=== PATIENT | female | born 1965 | race Caucasian/White ===

== ENCOUNTER 2022-05-19 08:39 | Outpatient (REF) | payer MEDICARE, MEDICAID, SELFPAY ==
--- NOTE | 2022-05-19 09:49 | MHC.AU.HA3 ---
Hearing Instrument Follow-Up- Binaural Date of Visit: 05/19/22 Left Ear: Make, Model, Color, Serial Number: Oticon Xceed 2 BTE UP SN: [id number] Color: Chroma Beige Colorist Photography Repair Warranty: 02/29/2024 Colorist Photography Loss and Damage Warranty: 02/29/2024 Battery Size: 675 Earmold/Dome/CShell/SlimTip: Microsonic M2000 full shell Dispensed By: Elvin [facility] Date of Fitting: January 2021 Follow-Up Summary: Brianna reported that her hearing aid has been intermittent and the tubing is pulling out of the ear mold. Tubing was extremely hard and starting to fill with wax. Cleaned hearing aid and ear mold, vacuumed microphones, and replaced tubing. A listening check demonstrated that the hearing aid is in good working order. Brianna reported that otherwise she likes the sound quality and has no other concerns with the hearing aid. Recommendations: Hearing instrument maintenance in 6 months, or sooner if needed. Please contact our clinic with any questions or concerns. Diagnosis Code(s): Primary Diagnosis: H90.3 Bilateral Sensorineural Hearing Loss Signature: Provider: Ashlee Tamayo, [facility]
== END 2022-05-19 08:40 | disposition home or self-care (01) ==
LOC: HO.SH 08:39
PROVIDERS: Visit Provider Physician Assistant
DX: Z01.118 Encounter for examination of ears and hearing with other abnormal findings (principal); H90.3 Sensorineural hearing loss, bilateral
CPT/HCPCS: 92553; 92592

== ENCOUNTER 2022-11-19 11:23 | Outpatient (REF) | payer MEDICARE, MEDICAID, SELFPAY ==
--- NOTE | 2022-11-19 11:55 | MHC.AU.HA3 ---
Hearing Instrument Follow-Up- Binaural Date of Visit: 11/19/22 Left Ear: Make, Model, Color, Serial Number: Oticon Xceed 2 BTE UP SN: [id number] Color: Chroma Beige Rubber Chemist Repair Warranty: 02/29/2024 Rubber Chemist Loss and Damage Warranty: 02/29/2024 Battery Size: 675 Earmold/Dome/CShell/SlimTip: Microsonic M2000 full shell Dispensed By: Elvin [facility] Date of Fitting: January 2021 Follow-Up Summary: Brianna returned for routine hearing aid maintenance. Tubing hardened with non-occluding wax starting to build up. Cleaned her hearing aid and earmold. Replaced tubing. Vacuumed microphones. A listening check demonstrated that the hearing aid is in good working order. Otoscopy clear, bilaterally. Recommendations: Hearing instrument maintenance in 6 months, or sooner if needed. Diagnosis Code(s): Primary Diagnosis: H90.3 Bilateral Sensorineural Hearing Loss Signature: Provider: Ashlee Tamayo, [facility]
== END 2022-11-19 11:24 | disposition home or self-care (01) ==
LOC: HO.HAP 11:23
PROVIDERS: Visit Provider Internal Medicine
DX: Z46.1 Encounter for fitting and adjustment of hearing aid (principal); H90.3 Sensorineural hearing loss, bilateral
CPT/HCPCS: 92592; 99499

== ENCOUNTER 2024-02-19 11:49 | Outpatient (REF) | payer MEDICARE, MEDICAID, SELFPAY ==
--- NOTE | 2024-02-19 15:20 | MHC.AU.HA3 ---
Hearing Instrument Follow-Up Date of Visit: 02/19/24 Left Ear: Make, Model, Color, Serial Number: Oticon Xceed 2 BTE UP SN: [id number] Color: Chroma Beige Automation Tender Repair Warranty: 02/29/2024 Automation Tender Loss and Damage Warranty: 02/29/[address] [facility] Service Plan: Battery Size: 675 Radiologist Physician/Slim Tube: Earmold/Dome/CShell/SlimTip: Microsonic M2000 full shell Type of Wax Guard: Dispensed By: Elvin [facility] Date of Fitting: January 2021 Follow-Up Summary: Aid dropped off with note that it has been weak. Found tube very hard and debris in tube. Cleaned aid, ran through dehumidifier, cleaned earmold, replaced tubing. Listening check positive. Recommendations: Recommendations: Hearing instrument maintenance in 6 months, or sooner if needed. Diagnosis Code(s): Primary Diagnosis: H90.3 Bilateral Sensorineural Hearing Loss Signature: Provider: Ashlee Ness, [facility]
== END 2024-02-19 11:50 | disposition home or self-care (01) ==
LOC: HO.HAP 11:49
DX: Z13.89 Encounter for screening for other disorder (principal)

== ENCOUNTER 2024-03-02 12:51 | Outpatient (REF) | payer MEDICARE, MEDICAID, SELFPAY | END 2024-03-02 12:52 | disposition home or self-care (01) | LOC: HO.HAP 12:51 | PROVIDERS: Visit Provider Physician Assistant | DX: Z46.1 Encounter for fitting and adjustment of hearing aid (principal); H90.3 Sensorineural hearing loss, bilateral | CPT/HCPCS: 92592; 99499 ==

== ENCOUNTER 2024-03-29 14:20 | Outpatient (REF) | payer MEDICARE, MEDICAID, SELFPAY ==
--- NOTE | 2024-03-29 14:47 | MHC.AU.HA3 ---
Hearing Instrument Follow-Up- Binaural Date of Visit: 03/29/24 Left Ear: Make, Model, Color, Serial Number: Oticon Xceed 2 BTE UP SN: [id number] Color: Chroma Beige Master Sonar Technician Repair Warranty: 03/29/2025 Master Sonar Technician Loss and Damage Warranty: 02/29/2024 Battery Size: 675 Earmold/Dome/CShell/SlimTip: Microsonic M2000 full shell Dispensed By: Elvin [facility] Date of Fitting: January 2021 Follow-Up Summary: Returned loaner. Picked up repaired BOURNE, transferred EM. Initially, too soft. Increased overall gain slightly with noted improvement. Recommendations: Hearing instrument follow-up or maintenance as needed. Please contact our clinic with any questions or concerns. Diagnosis Code(s): Primary Diagnosis: H90.3 Bilateral Sensorineural Hearing Loss Signature: Provider: Ashlee Tamayo, CCC-A
== END 2024-03-29 14:21 | disposition home or self-care (01) ==
LOC: HO.HAP 14:20
PROVIDERS: Visit Provider Physician Assistant
DX: Z46.1 Encounter for fitting and adjustment of hearing aid (principal); H90.3 Sensorineural hearing loss, bilateral
CPT/HCPCS: V5014

== ENCOUNTER 2024-11-02 09:49 | Outpatient (REF) | payer MEDICARE, MEDICAID, SELFPAY ==
--- OUTSIDE RECORDS SUMMARY | 2024-11-02 10:11 | XMS_ITS | Continuity of Care Document ---
Author Organization [facility] [address] [place] [address] Phone [phone] Care Team Providers Care Retort Cooler Name Role Phone Tona Banks Care Team Information Single Pass Soil Stabilizer Operator [phone] Luke Teixeira Care Team Information Receive r [phone] Problems Active Problems Provider Date Allergic rhinitis Jeremi Fleming M.D. Onset: 05/29/2022 Asthma Jeremi Fleming M.D. Onset: 0 05/29/2022 Carotid artery stenosis Jeremi Fleming M.D. Onset: 05/29/2022 Neck sprain Jeremi Fleming M.D. Onset: 0 05/29/2022 Chronic kidney disease stage 3 Jeremi Fleming M.D. Onset: 05/29/2022 Uses sign language Jeremi Fleming M.D. Onset : 05/29/2022 Deaf mutism Jeremi Fleming M.D. Onset: 0 05/29/2022 Type 2 diabetes mellitus Jeremi Fleming M.D. Onset: 05/29/2022 Hyperlipidemia Jeremi Fleming M.D. Onset: 0 05/29/2022 Hypothyroidism Jeremi Fleming M.D. Onset: 0 05/29/2022 Essential hypertension Jeremi Fleming M.D. O nset: 05/29/2022 Heart murmur Jeremi Fleming M.D. Onset: 0 05/29/2022 Hypertriglyceridemia Jeremi Fleming M.D. Ons et: 05/29/2022 Polycystic ovary syndrome Pasquale Ahuja Onset: 05/29/2022 Social History Type Date Description Comments Sex Female Sex Unknown ETOH Use Denies alcohol use Tobacco Use Start: Unknown End: Unknown Patient is a former smoker Allergies and adverse reactions Active Allergies Criticality Reaction Severity Comments Date Eggs Unable to assess criticality 05/29/2022 Medications Active Medications SIG Qnty Indications Order ing Provider Date Rpntfqydwyu379tl Tablets 1 tablet by mouth every day 90tabs Jeremi Fleming M.D. 09/06/2024 Mounjaro7.5mg/0.5ML Solution Auto-Inject 1 injection every week as directed 6ml Jeremi Fleming M.D. 03/17/2024 BD Uf Short Pen Needle 9LVX18P Use Once A Day 100units E11.9 Jeremi Fleming M.D. 10/19/2023 Freestyle Shahana 3/Sensor/Glucose Monitoring Pkothd7Vhqtgy Misc as directed 6units Jeremi Fleming M.D. 01/12/2023 Abouttime Pen [place] 30GX 5/16 30G X 8 mm Misc 1 injection per day 100units Jeremi Fleming M.D. 10/08/2022 Lantus Iujtirgn640Gpbu/ML Solution Pen-Inject Inject 22 Units Under The Skin Once Daily DX: E11.9 15units E11.9 Jeremi Fleming M.D. 10/08/2022 Accu-Chek GuideStrips test 2 times a day dx: e11.9 100units Jeremi Fleming M.D. 05/29/2022 Nrqxrhzpk2wp Tablets Take 2 Tablets By Mouth Twice A Day 360tabs Jeremi Fleming M.D. 05/29/2022 Ssedbntpg58eb Tablets Take 1 Tablet By Mouth Every Day 90tabs Jeremi Fleming M.D. 05/29/[address] 1 by mouth every day Jeremi Fleming M.D. Doxycycline Gogqkgu895dj Tablets 1 by mouth every day 28tabs Jeremi Fleming M.D. Magnesium Oxide (Elemental)400mg Tablets 1 by mouth once a day Jeremi Fleming M.D. Doxepin EYP79mp Capsules take 1 capsule by mouth everyday at bedtime Jeremi Fleming M.D. Levothyroxine Wztqmu16urw Tablets 1 by mouth every day Jeremi Fleming M.D. Cyclobenzaprine FTS41iz Tablets take 1 tablet by mouth at bedtime as needed 30tabs Jeremi Fleming M.D. Pravastatin Dgtbti18cg Tablets 1 by mouth every day 90tabs Jeremi Fleming M.D. Vpybep69vb/0.5ML Soln Prefill Syringe use as directed monthly Jeremi Fleming M.D. Montelukast Lygyjj78iv Tablets 1 by mouth every day Jeremi Fleming M.D. Asmanex MVG869dnm/Act Aerosol inhale 2 puffs by mouth twice a day as directed 13gm Jeremi Fleming M.D. Flovent OYE986bpw/Act Aerosol 2 puff twice a day Jeremi Fleming M.D. Metformin BDQ960vq Tablets Take 1 Tablet By Mouth Twice A Day 180tabs Jeremi Fleming M.D. Aspirin 8181mg Tablets DR 1 by mouth every day 90tabs Jeremi Fleming M.D. Hmdpwwrlkw14kt Tablets 1 tab by mouth every day as directed 90tabs Jeremi Fleming M.D. Vital Signs Date Vital Result Comment 08/15/2024 10:56am BP Systolic 136 mmHg BP Diastolic 80 mmHg Heart Rate 72 /min Height 64 inches 5'4 Weight 145.50 lb BMI (Body Mass Index) 25.0 kg/m2 Results Test Acquired Date Facility Test Result H/L Range Note Lipid Panel 09/02/2024 [facility] Cholesterol, Total 181 mg/dL 100-199 Triglycerides 489 mg/dL High 0-149 HDL Cholesterol 45 mg/dL >39 VLDL Cholesterol Josh 74 mg/dL High 5-40 LDL Chol Calc (Rust) 62 mg/dL 0-99 LDL Calc Comment: TNP Comp. Metabolic Panel (14) 09/02/2024 [facility] Glucose 173 mg/dL High 70-99 BUN 40 mg/dL High 8-27 Creatinine 1.00 mg/dL 0.57-1.00 eGFR 64 mL/min/1.7 3 >59 BUN/Creatinine Ratio 40 High 12-28 Sodium 142 mmol/L 134-144 Potassium 4.4 mmol/L 3.5-5.2 Chloride 102 mmol/L 96-106 Carbon Dioxide, Total 21 mmol/L 20-29 Calcium 10.4 mg/dL High 8.7-10.3 1 Protein, Total 6.6 g/dL 6.0-8.5 Albumin 4.4 g/dL 3.8-4.9 Globulin, Total 2.2 g/dL 1.5-4.5 Bilirubin, Total 0.4 mg/dL 0.0-1.2 Alkaline Phosphatase 79 IU/L 44-121 Ast (Sgot) 43 IU/L High 0-40 Alt (SGPT) 59 IU/L High 0-32 Albumin/Creati nine Ratio, Random Urine 09/02/2024 [facility] Creatinine, Urine 24.3 mg/dL Not Estab. Albumin, Urine 37.9 ug/mL Not Es tab. Alb/Creat Ratio 156 mg/gcreat High 0-29 2 Vitamin D, 25-Hydroxy 09/02/2024 [facility] Vitamin D, 25-Hydroxy 43.7 ng/mL 30.0-100.0 3 CBC With Differential/P latelet 09/02/2024 [facility] WBC 8.5 x10E3/uL 3.4-10.8 RBC 4.88 x10E6/uL 3.77-5.28 Hemoglobin 15.1 g/dL 11.1-15.9 Hematocrit 44.8 % 34.0-46.6 MCV 92 fL 79-97 MCH 30.9 pg 26.6-33.0 MCHC 33.7 g/dL 31.5-35.7 RDW 14.0 % 11.7-15.4 Platelets 266 x10E3/uL 150-450 Neutrophils 70 % Not Estab. Lymphs 19 % Not Estab. Monocytes 7 % Not Estab. Eos 2 % Not Estab. Basos 1 % Not Estab. Immature Cells TNP Neutrophils (Absolute) 6.1 x10E3/uL 1.4-7.0 Lymphs (Absolute) 1.6 x10E3/uL 0.7-3.1 Monocytes(Absol [place]) 0.6 x10E3/uL 0.1-0.9 Eos (Absolute) 0.2 x10E3/uL 0.0-0.4 Baso (Absolute) 0.1 x10E3/uL 0.0-0.2 Immature Granulocytes 1 % Not Estab. Immature Grans (Abs) 0.1 x10E3/uL 0.0-0.1 NRBC TNP Hematology Comments: TNP Urinalysis, Complete 09/02/2024 [facility] Specific [place] 1.022 1.005-1.03 0 pH 5.5 5.0-7.5 Urine-Color Yellow Yellow Appearance Clear Clear WBC Esterase 2+ Abnormal Negative Protein Trace Negative/T race Glucose 3+ Abnormal Negative Ketones Negative Negative Occult Blood Negative Negative Bilirubin Negative Negative Urobilinogen,Se mi-Qn 0.2 mg/dL 0.2-1.0 Nitrite, Urine Negative Negative Microscopic Examination See below: 4 Microscopic Examination TNP WBC >30 /hpf Abnormal 0 - 5 RBC None seen /hpf 0 - 2 Epithelial Cells (non renal) 0-10 /hpf 0 - 10 Epithelial Cells (renal) TNP Casts None seen /lpf None seen Cast Type TNP Crystals TNP Crystal Type TNP Mucus Threads TNP Bacteria Many Abnormal None seen/Few Yeast TNP Trichomonas TNP Comment TNP TSH+Free T4 09/02/2024 [facility] TSH 2.300 uIU/mL 0.450-4.50 0 T4,Free(Direct) 1.08 ng/dL 0.82- 1.77 Glucose Fingerstick 08/15/2024 Inhouse Glucose Fingerstick 212 Hemoglobin A1c 08/15/2024 Inhouse Hemoglobin A1c 7.5% Glucose Fingerstick 03/17/2024 Inhouse Glucose Fingerstick 198 Hemoglobin A1c 03/17/2024 Inhouse Hemoglobin A1c 9.2% Urinalysis, Complete 01/01/2024 [facility] Specific [place] 1.023 1.005-1.03 0 pH 6.0 5.0-7.5 Urine-Color Yellow Yellow Appearance Clear Clear WBC Esterase 1+ Abnormal Negative Protein Negative Negative/T race Glucose 3+ Abnormal Negative Ketones Negative Negative Occult Blood Negative Negative Bilirubin Negative Negative Urobilinogen,Se mi-Qn 0.2 mg/dL 0.2-1.0 Nitrite, Urine Negative Negative Microscopic Examination See below: 5 Microscopic Examination TNP WBC >30 /hpf Abnormal 0 - 5 RBC None seen /hpf 0 - 2 Epithelial Cells (non renal) 0-10 /hpf 0 - 10 Epithelial Cells (renal) TNP Casts None seen /lpf None seen Cast Type TNP Crystals TNP Crystal Type TNP Mucus Threads TNP Bacteria Many Abnormal None seen/Few Yeast TNP Trichomonas TNP Comment TNP Phosphorus 01/01/2024 [facility] Phosphorus 4.6 mg/dL High 3.0-4.3 Magnesium 01/01/2024 [facility] Magnesium 1.7 mg/dL 1.6-2.3 PTH, Intact 01/01/2024 [facility] PTH, Intact 21 pg/mL 15-65 Albumin/Creati nine Ratio, Random Urine 01/01/2024 [facility] Creatinine, Urine 28.6 mg/dL Not Estab. Albumin, Urine 29.7 ug/mL Not Es tab. Alb/Creat Ratio 104 mg/gcreat High 0-29 6 Vitamin D, 25-Hydroxy 01/01/2024 [facility] Vitamin D, 25-Hydroxy 36.9 ng/mL 30.0-100.0 7 TSH+Free T4 01/01/2024 [facility] TSH 1.150 uIU/mL 0.450-4.50 0 T4,Free(Direct) 1.09 ng/dL 0.82- 1.77 CBC With Differential/P latelet 01/01/2024 [facility] WBC 9.3 x10E3/uL 3.4-10.8 RBC 4.67 x10E6/uL 3.77-5.28 Hemoglobin 13.4 g/dL 11.1-15.9 Hematocrit 42.1 % 34.0-46.6 MCV 90 fL 79-97 MCH 28.7 pg 26.6-33.0 MCHC 31.8 g/dL 31.5-35.7 RDW 14.5 % 11.7-15.4 Platelets 244 x10E3/uL 150-450 Neutrophils 70 % Not Estab. Lymphs 19 % Not Estab. Monocytes 7 % Not Estab. Eos 2 % Not Estab. Basos 1 % Not Estab. Immature Cells TNP Neutrophils (Absolute) 6.5 x10E3/uL 1.4-7.0 Lymphs (Absolute) 1.7 x10E3/uL 0.7-3.1 Monocytes(Absol [place]) 0.6 x10E3/uL 0.1-0.9 Eos (Absolute) 0.2 x10E3/uL 0.0-0.4 Baso (Absolute) 0.1 x10E3/uL 0.0-0.2 Immature Granulocytes 1 % Not Estab. Immature Grans (Abs) 0.1 x10E3/uL 0.0-0.1 NRBC [facility] Hematology Comments: [facility] Lipid Panel 01/01/2024 [facility] Cholesterol, Total 190 mg/dL 100-199 Triglycerides 393 mg/dL High 0-149 HDL Cholesterol 40 mg/dL >39 VLDL Cholesterol Josh 64 mg/dL High 5-40 LDL Chol Calc (Nih) 86 mg/dL 0-99 LDL Calc Comment: [facility] Comp. Metabolic Panel (14) 01/01/2024 [facility] Glucose 212 mg/dL High 70-99 BUN 39 mg/dL High 6-24 Creatinine 1.18 mg/dL High 0.57-1.00 eGFR 53 mL/min/1.7 3 Low >59 BUN/Creatinine Ratio 33 High 9-23 Sodium 142 mmol/L 134-144 Potassium 4.5 mmol/L 3.5-5.2 Chloride 102 mmol/L 96-106 Carbon Dioxide, Total 25 mmol/L 20-29 Calcium 10.2 mg/dL 8.7-10.2 Protein, Total 6.3 g/dL 6.0-8.5 Albumin 4.2 g/dL 3.8-4.9 Globulin, Total 2.1 g/dL 1.5-4.5 Bilirubin, Total 0.3 mg/dL 0.0-1.2 Alkaline Phosphatase 82 IU/L 44-121 Ast (Sgot) 27 IU/L 0-40 Alt (SGPT) 37 IU/L High 0-32 Hemoglobin A1c 12/10/2023 [facility]house Hemoglobin A1c 8.6% Glucose Fingerstick 12/10/2023 [facility]house Glucose Fingerstick 188 Glucose Fingerstick 08/04/2023 [facility]house Glucose Fingerstick 161 Hemoglobin A1c 08/04/2023 Inhouse Hemoglobin A1c 8.0% Glucose Fingerstick 04/15/2023 Inhouse Glucose Fingerstick 151 Hemoglobin A1c 04/15/2023 Inhouse Hemoglobin A1c 7.2% Glucose Fingerstick 01/12/2023 [facility]house Glucose Fingerstick 176 Hemoglobin A1c 01/12/2023 Inhouse Hemoglobin A1c 7.6% Glucose Fingerstick 10/08/2022 Inhouse Glucose Fingerstick 137 Hemoglobin A1c 10/08/2022 Inhouse Hemoglobin A1c 8.7% Albumin 07/08/2022 [facility] Albumin 4.6 GM/DL (3.4-4.8) Glucose Fingerstick 07/08/2022 Inhouse Glucose Fingerstick 191 Phosphorus 07/08/2022 [facility] Phosphorus 4.0 mg/dL (2.5-4.5) PTH, Intact 07/08/2022 [facility] PTH, Intact 30 pg/mL (15-65) 25Oh Vitamin D 07/08/2022 [facility] 25Oh Vitamin D 54.3 NG/ML High (20-50) Basic Metabolic Panel 07/08/2022 [facility] Glucose 142 mg/dL High (70-99) BUN 48 mg/dL High (6-20) Creatinine 1.2 mg/dL High (0.5-1.0) Sodium 141 mmol/L (133-145) Potassium 5.3 mmol/L High (3.6-5.2) Chloride 104 mmol/L (98-107) Bicarbonate 24 mmol/L (22-29) Anion Gap 13 (4-17) Calcium 10.8 mg/dL High (8.6-10.5) Estimated GFR Creatinine 54 ML/MIN/1.7 3M2 8 Albumin 06/09/2022 [facility] Albumin 4.5 GM/DL (3.4-4.8) Basic Metabolic Panel 06/09/2022 [facility] Glucose 270 mg/dL High (70-99) BUN 42 mg/dL High (6-20) Creatinine 1.1 mg/dL High (0.5-1.0) Sodium 141 mmol/L (133-145) Potassium 4.8 mmol/L (3.6-5.2) Chloride 101 mmol/L (98-107) Bicarbonate 26 mmol/L (22-29) Anion Gap 14 (4-17) Calcium 10.9 mg/dL High (8.6-10.5) Estimated GFR Creatinine 57 ML/MIN/1.7 3M2 9 PTH, Intact 06/09/2022 [facility] PTH, Intact 45 pg/mL (15-65) Albumin 05/29/2022 [facility] Albumin <pending> PTH, Intact 05/29/2022 [facility] PTH, Intact <pending> Hemoglobin A1c 05/29/2022 Inhouse Hemoglobin A1c 9.6% 1 Verified by repeat analysis 2 Normal: 0 - 29 Moderately increased: 30 - 300 Severely increased: >300 3 Vitamin D deficiency has been defined by the [facility] and an Endocrine Society practice guideline as a level of serum 25-OH vitamin D less than 20 ng/mL (1,2). The Endocrine Society went on to further define vitamin D insufficiency as a level between 21 and 29 ng/mL (2). 1. IOM ([facility]). 2010. Dietary reference intakes for calcium and D. [place]: The National [employer]. 2. [place] ESCOBAR, Tiffanie HYDE, Narayan BOURNE, et al. Evaluation, treatment, and prevention of vitamin D deficiency: an Endocrine Society clinical practice guideline. JCEM. 2010; 96(7):1911-30. 4 Microscopic was skylar cated and was performed. 5 Microscopic was skylar cated and was performed. 6 Normal: 0 - 29 Moderately increased: 30 - 300 Severely increased: >300 7 Vitamin D deficiency has been defined by the [facility] and an Endocrine Society practice guideline as a level of serum 25-OH vitamin D less than 20 ng/mL (1,2). The Endocrine Society went on to further define vitamin D insufficiency as a level between 21 and 29 ng/mL (2). 1. IOM ([facility]). 2010. Dietary reference intakes for calcium and D. [place]: The National [employer]. 2. Tiffanie [place], Narayan BOURNE, et al. Evaluation, treatment, and prevention of vitamin D deficiency: an Endocrine Society clinical practice guideline. JCEM. 2010; 96(7):1911-30. 8 Creatinine based est imated glomerular filtration (eGFR) in adults is calculated using the National [employer] recommended 2020 CKD-EPI equation. Estimates GFR from serum creatinine, age and sex. 9 Creatinine based est imated glomerular filtration (eGFR) in adults is calculated using the National Kidney Foundation recommended 2020 CKD-EPI equation. Estimates GFR from serum creatinine, age and sex. Procedures Date Code Description Status 02/16/2023 88576 Glucose Monitori ng From Interstital Tissue Fluid Minimum 72 Hours Completed Medical Devices Description No Information Available Encounters Type Date Location Provider Dx Diagnosis Office Visit 08/15/2024 10:45a Main Office Jeremi Fleming M.D. E11.9 Type 2 diabetes mellitus without complications Assessments Date Code Description Provider 08/15/2024 E11.9 Type 2 diabetes mellitus without complications Jeremi Fleming M.D. Plan of Treatment Future Appointment(s):* 12/29/2024 8:30 am - Jeremi Fleming M.D. at Main Office 08/15/2024 - Jeremi Fleming M.D.* E11.9 Type 2 diabetes mellitus without complications Functional Status Description No Information Available Mental Status Description No Information Available Referrals Description No Information Available
--- OUTSIDE RECORDS SUMMARY | 2024-11-02 10:11 | XMS_ITS | Clinical Summary ---
Author Organization [facility] Address [address] [place] [address] Phone Care Team Providers Care Hematology Supervisor Name Role Phone Tona Banks Primary Care Provider [phone] Allergies Active Allergy Reactions Criticality Noted Date Comments Egg 09/01/2017 Other 01/05/2020 Medications insulin glargine (LANTUS SoloStar) 100 unit/mL (3 mL) injection pen Inject into the skin. 3 Active omalizumab (XOLAIR) 150 mg injection Inject into the skin every 28 days. Active empagliflozin (Jardiance) 10 mg tablet Take 1 tablet (10 mg total) by mouth 1 (one) time each day. 4 Active glipiZIDE (GLUCOTROL) 5 mg tablet Take 2 Tablets by mouth 2 times daily (before meals). Active UNABLE TO FIND B-D ULTRAFINE III SHORT PEN 31G X 8 MM Misc 1 Strip daily. 3 Active white petrolatum (Vaseline White Petroleum) ointment Apply 1 Applicator topically as needed for Dry Skin for up to 360 days. 3 Active risankizumab-rz aa (Skyrizi) 150 mg/mL pen injector 4 Active doxepin (SINEquan) 50 mg capsule TAKE 1 CAPSULE BY MOUTH EVERY DAY AT BEDTIME NEEDED ITCH 2 Active lisinopriL (PRINIVIL,ZESTR IL) 10 mg tablet Take 1 tablet (10 mg total) by mouth 1 (one) time each day. 2 Active magnesium oxide (MAG-OX) 400 mg (241.3 elemental magnesium) tablet TAKE 1 TABLET BY MOUTH 1 TIME EACH DAY. 3 Active pantoprazole (PROTONIX) 20 mg EC tablet Take 1 tablet (20 mg total) by mouth 1 (one) time each day. 2 Active clotrimazole (LOTRIMIN) 1 % cream Apply to skin and toenails daily for 12 weeks 3 Active ammonium lactate (LAC-HYDRIN) 12 % lotion Apply to soles of feet daily. At night wear socks to bed 3 Active metFORMIN (GLUCOPHAGE) 500 mg tablet Take 1 Tablet by mouth 2 times daily (with meals). 8 Active dulaglutide (Trulicity) 3 mg/0.5 mL pen injector injection Inject into the skin. Active montelukast (SINGULAIR) 10 mg tablet Take 1 tablet (10 mg total) by mouth at bedtime. 0 Active loratadine (CLARITIN) 10 mg tablet Take 10 mg by mouth daily. Active multivitamin (Daily Multi-Vitamin) tablet Take by mouth. Activ e glucose blood test strip USE TO TEST BLOOD SUGAR 3 TIMES A DAY. E11.9 8 Active albuterol HFA (PROAIR HFA ; PROVENTIL HFA ; VENTOLIN HFA) 90 mcg/actuation inhaler Inhale 2 Puffs into the lungs every 4 hours as needed for Cough or Wheezing. 7 Active aspirin 81 mg EC tablet Take 81 mg by mouth daily. Active levothyroxine (SYNTHROID, LEVOTHROID) 50 mcg tablet Take 50 mcg by mouth daily. Active pravastatin (PRAVACHOL) 20 mg tablet Take 2 tablets (40 mg total) by mouth 1 (one) time each day. Active cholecalciferol (VITAMIN D-3) 25 mcg (1,000 unit) capsule Take by mouth. A ctive fluticasone propionate (FLOVENT INHL) Inhale into the lungs. Active ammonium lactate (AmLactin) 12 % lotion Apply topically if needed for dry skin. 400 g 4 03/29/20 25 Active Active Problems Problem Noted Date Diagnosed Date Asthma 09/01/2017 Blindness of right eye 09/01/2017 Deaf 09/01/2017 Overview (02/19/2024): Requires sign language interpretor Diabetes mellitus type 2, un complicated ([facility] V24, [facility] V28) 09/01/2017 Eczema 09/01/2017 Seborrheic dermatitis 09/01/2017 Hyperlipidemia 09/01/2017 Hypertension 09/01/2017 Hypothyroid 09/01/2017 PCOS (polycystic ovarian syndrome) 09/01/2017 Psoriasis 09/01/2017 Seasonal allergic rhinitis 09/01/2017 Overview (02/19/2024): Xolair injections Encounters Date Type Department Care Team Description 09/27/2024 8:30 AM EDT Office Visit Orthopedic Surgery - [place] [address] [place] [phone] Jonas Suarez, DPM Primary osteoarthritis of both feet (Primary Dx); Metatarsalgia of both feet; Corns and callosities; Xerosis of skin; Dermatophytosis of nail; Diabetic mononeuropathy simplex ([facility] V24, [facility] V28); Type II diabetes mellitus with peripheral circulatory disorder ([facility] V24, [facility] V28); Pain in toe of left foot [M79.675]; Pain in toe of right foot [M79.674] from Last 3 Months Medical History Medical History Date Comments Asthma 09/01/2017 DX:Asthma Deaf 09/01/2017 DX:Deaf; COMMENT : Requires sign language interpretor Seasonal allergic rhinitis 09/01/2017 DX:Se asonal allergic rhinitis; COMMENT: Xolair injections Hyperlipidemia 09/01/2017 DX:Hyperlipidemi a Diabetes mellitus type 2, un complicated ([facility] V24, [facility] V28) 09/01/2017 DX:Diabetes mellitus type 2 , uncomplicated (HCC) Hypothyroid 09/01/2017 DX:Hypothyroid Psoriasis 09/01/2017 DX:Psoriasis Eczema 09/01/2017 DX:Eczema PCOS (polycystic ovarian syndrome) 09/01/2017 DX:PCOS (polycystic ovarian syndrome) Hypertension 09/01/2017 DX:Hypertension Seborrheic dermatitis 09/01/2017 DX:Seborrh eic dermatitis History of gastric ulcer 09/01/2017 DX:Hist ory of gastric ulcer 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 DX:His tory of Kos[place] measles Blindness of right eye 09/01/2017 DX:Blindn ess of right eye Family History Medical History Relation Name Comments Rheum arthritis Father Rheum arthritis Mother Relation Name Status Comments Father Mother Social History Tobacco Use Types Packs/Day Years Used Date Smoking Tobacco: Former Cigarettes Smokeless Tobacco: Never Alcohol Use Standard Drinks/Week Comments Yes 0 (1 standard drink = 0.6 oz pur e alcohol) Comments Unknown Sex and Gender Information Value Date Recorded Sex Assigned at Not on file Legal Sex Female 1:37 AM EST Gender Identity Not on file Sexual Orientation Not on file Obstetrics History Last Filed Vital Signs Vital Sign Reading Time Taken Comments Blood Pressure - - Pulse - - Temperature - - Respiratory Rate - - Oxygen Saturation - - Inhaled Oxygen Concentration - - Weight 67.1 kg (148 lb) 09/27/2024 8:32 AM EDT Height 162.6 cm (5' 4.02 ) 09/27/2024 8:32 AM ED T Body Mass Index 25.39 09/27/2024 8:32 AM EDT Plan of Treatment Upcoming Encounters Date Type Department Care Team (Late st Contact Info) Description 12/29/2024 9:00 AM EDT Office Visit Orthopedic Surgery - [place] [address] [phone] Jonas Suarez, DPM [address] [address] Health Maintenance Due Date Last Done Comments Breast Cancer Screening 1964 Diabetes: Annual GFR (Glomer ular Filtration Rate) 1964 Diabetes: Annual Foot Exam 1974 Diabetes: Annual Retina Eye Exam 1974 Cervical Cancer Screening: P ap Smear 1985 Pneumococcal Vaccine: 50+ Ye ars (2 of 2 - PCV) 06/14/2009 06/14/2008 Pneumococcal Vaccine: Pediat rics (0 to 5 Years) and At-Risk Patients (6 to 64 Years) (2 of 2 - PCV) 06/14/2009 06/14/2008 Zoster Vaccines (1 of 2) 2014 Cholesterol Screening (Lipid Panel) 04/12/2022 Colorectal Cancer Screening: Colonoscopy 04/12/2022 Depression Screening 04/12/2022 HIV Screening 04/12/2022 Hepatitis C Screening 04/12/2022 Medicare Annual Wellness Visit 04/12/2022 Social Influencers of Health Screening 04/12/2022 Diabetes: Blood Sugar Contro l Test (HGBA1C) 04/18/2022 09/25/2021 Hypertension/CHF/CAD Annual BMP Blood Test 04/18/2022 COVID-19 Vaccine (2 - 2023-2 5 season) 2024 09/20/2020 RSV Immunization Adult Patie nts (1 - Risk 60-74 years 1-dose series) 2024 Influenza Vaccine (#1) 2025 01/31/2014 Diabetes: Annual Urine Albumin-Creatinine Ratio (uACR) 09/02/2025 09/02/2024 DTaP,Tdap,and Td Vaccines (2 - Td or Tdap) 01/06/2030 01/07/2020 HIB Vaccines Aged Out No longer eligi ble based on patient's age to complete this topic HPV Vaccines Aged Out No longer eligi ble based on patient's age to complete this topic Hepatitis A Vaccines Aged Out No long er eligible based on patient's age to complete this topic Hepatitis B Vaccines Aged Out No long er eligible based on patient's age to complete this topic IPV Vaccines Aged Out No longer eligi ble based on patient's age to complete this topic MMR Vaccines Aged Out No longer eligi ble based on patient's age to complete this topic Meningococcal ACWY Vaccine Aged Out N o longer eligible based on patient's age to complete this topic Meningococcal B Vaccine Aged Out No l onger eligible based on patient's age to complete this topic RSV Immunization Patients Un jm 20 months Aged Out No longer eligible b ased on patient's age to complete this topic Varicella Vaccines Aged Out No longer eligible based on patient's age to complete this topic Insurance MEDICARE [place]ICA[place] - [place] Advance Directives Documents on File Type Date Recorded Patient Lan Manager Expl anation Health Care Decision (hx) 03/09/2017 ABY HARRINGTON DIRECTIVE Care Teams Hematology Supervisor Relationship Specialty Start Date End Date Tona Banks PA [address] [place] [phone] PCP - General Internal Medicine 09/08/17
--- NOTE | 2024-11-02 10:15 | MHC.AU.HA3 ---
Hearing Instrument Follow-Up- Binaural Date of Visit: 11/02/24 Left Ear: Make, Model, Color, Serial Number: Oticon Xceed 2 BTE UP SN: [id number] Color: Chroma Beige Lens Coater Repair Warranty: 03/29/2025 Lens Coater Loss and Damage Warranty: 02/29/2024 Battery Size: 675 Earmold/Dome/CShell/SlimTip: Microsonic M2000 full shell Dispensed By: Elvin Duke [facility] Date of Fitting: January 2021 Follow-Up Summary: Reported BOURNE whistling, excessive feedback. Tubing extremely hard, likely pulling on EM. Cleaned BOURNE (1). Cleaned EM (1). Replaced tubing (1). Vacuumed microphones (1). [id number] x4. Ran through dehumidifier. Listening check demonstrated HAs amplifying clearly. Otoscopy clear, bilaterally. Reran feedback analyzer, slight decrease in amplification but not noticeable per Brianna. No feedback noted in office. Recommendations: Hearing instrument follow-up or maintenance as needed. Please contact our clinic with any questions or concerns. Diagnosis Code(s): Primary Diagnosis: H90.3 Bilateral Sensorineural Hearing Loss Signature: Provider: Ashlee Tamayo, [facility]
== END 2024-11-02 09:50 | disposition home or self-care (01) ==
LOC: HO.HAP 09:49
PROVIDERS: Visit Provider Physician Assistant
DX: Z46.1 Encounter for fitting and adjustment of hearing aid (principal); H90.3 Sensorineural hearing loss, bilateral
CPT/HCPCS: 92592; 99499; V5266